=== PATIENT | male | born 1995 | race Caucasian/White ===

== ENCOUNTER → 2024-03-18 12:21 | Outpatient (REF) | payer OTHER, SELFPAY | LOC: RCS 12:21 | PROVIDERS: ATTENDING PHYSICIAN Psychiatry & Neurology Psychiatry; FAMILY PHYSICIAN Internal Medicine | DX: R41.840 Attention and concentration deficit (principal); Z79.899 Other long term (current) drug therapy | CPT/HCPCS: 93005 ==